=== PATIENT | male | born 1965 | race Caucasian/White ===

== ENCOUNTER 2017-09-24 18:23 | Day surgery (SDC) | payer BC, OTHER ==
[2017-09-24] MEDS ORDERED: Ondansetron 4 MG/2 ML SDV IVPUSH ONE ×3 (19:45→22:10)
[2017-09-24] MEDS ORDERED: Morphine 4 MG/ML Syringe IVPUSH ONE (19:45)
[2017-09-24] MEDS ORDERED: Sodium Chloride 0.9% 1,000 ML IV SCH ×2 (19:45→21:15)
--- NOTE | 2017-09-24 19:51 | EDM.PDOC ---
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, pain getting worse, localized h/o kidney stone once 1y ago, that was a different pain (in his back) no f/c/d nausea, no V no f/c/d no prior abd surgery inc'd pain with movement, dec'd with rest (lying supine), no change with BM, dec 'd with cottage cheese at 1:30 PM last labs: CBC neg, CMP neg with BUN/creat 16/1.0 except glu 175 2y ago, BNP 14 2y ago went to clinic who sent hime here has taken no meds home meds: Janumet, glimepride, levothyroxine, ASA 81 mg prior imaging: abd/pelvic CT 2y ago with 7 mm stone at distal R ureter, no stones in pelvis, DJD spine 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 Right Lower Abdominal Pain Score (Numeric/FACES): 6 - Related Data Allergies Allergy/AdvReac Type Severity Reaction Status Date / Time No Known Allergies Allergy Verified 09/24/17 18:58 Home Meds: Home Meds Aspirin [Dariana Chewable Aspirin] 81 mg PO DAILY 07/11/15 [History] Glimepiride [Glimepiride] 4 mg PO DAILY 07/11/15 [History] Levothyroxine 175 mcg PO DAILY 07/11/15 [History] sitaGLIPtin Phos/Metformin HCl [Janumet 50-1,000 MG] 1 tab PO DAILY 07/11/15 [ History] Past Medical History Cardiovascular History: Reports: Hypertension Gastrointestinal History: Reports: Other (See Below) Other Gastrointestinal History: occasional blood with stool Genitourinary History: Reports: Renal Calculus Endocrine/Metabolic History: Reports: Diabetes, Type II, Hypothyroidism - Infectious Disease History Infectious Disease History: Reports: Chicken Pox - Past Surgical History Musculoskeletal Surgical History: Reports: Arthroscopic Knee, Other (See Below) Other Musculoskeletal Surgeries/Procedures:: tonsillectomy at age 6, SURGERY TO WRIST Social & Family History - Tobacco Use Smoking Status *Q: Former Smoker Used Tobacco, but Quit: Yes Month Tobacco Last Used: 25yrs ago Second Hand Smoke Exposure: No - Caffeine Use Caffeine Use: Reports: Coffee, Soda, Tea - Recreational Drug Use Recreational Drug Use: No ED ROS GENERAL - Review of Systems Review Of Systems: See Below Constitutional: Reports: No Symptoms. Denies: Fever, Chills, Malaise, Weakness , Fatigue, Diaphoresis, Decreased Appetite HEENT: Reports: No Symptoms Respiratory: Reports: No Symptoms Cardiovascular: Reports: No Symptoms Endocrine: Reports: No Symptoms GI/Abdominal: Reports: Abdominal Pain, Nausea. Denies: Constipation, Diarrhea, Vomiting : Reports: No Symptoms Musculoskeletal: Reports: No Symptoms Skin: Reports: No Symptoms Neurological: Reports: No Symptoms Psychiatric: Reports: No Symptoms Hematologic/Lymphatic: Reports: No Symptoms Immunologic: Reports: No Symptoms ED EXAM, GI/ABD - Physical Exam Exam: See Below Exam Limited By: No Limitations General Appearance: Alert, WD/WN, Mild Distress, Other (nontoxic, lying fairly still supine on exam table) Ears: Normal External Exam, Hearing Grossly Normal Nose: Normal Inspection, Normal Mucosa, No Blood Throat/Mouth: Normal Inspection, Normal Lips, Normal Teeth, Normal Gums, Normal Oropharynx, Normal Voice, No Airway Compromise Head: Atraumatic, Normocephalic Neck: Normal Inspection, Supple, Non-Tender Respiratory/Chest: No Respiratory Distress, Lungs Clear, Normal Breath Sounds, No Accessory Muscle Use, Chest Non-Tender Cardiovascular: Regular Rate, Rhythm, No Edema, No Gallop, No JVD, No Murmur, No Rub GI/Abdominal Exam: Other (good BS x 4, obese, 1-2+ tender RLQ with guard and rebound only in RLQ, NT elsewhere, no HSM, no mass, no CVAT b/l) Back Exam: Normal Inspection, Full Range of Motion, NT Extremities: Normal Inspection, Normal Range of Motion, Non-Tender, Other (1+ edema b/l) Neurological: Alert, Oriented, CN II-XII Intact, Normal Cognition, No Motor/ Sensory Deficits Psychiatric: Normal Affect, Normal Mood Skin Exam: Warm, Dry, Intact, Normal Color, No Rash Lymphatic: No Adenopathy Course - Vital Signs Last Recorded V/S: Last Vital Signs Temp 37.1 C 09/24/17 19:05 Pulse 99 09/24/17 21:35 Resp 16 09/24/17 21:35 BP 162/87 H 09/24/17 21:35 Pulse Ox 97 09/24/17 19:05 - Orders/Labs/Meds Orders: Active Orders 24 hr Category Date Time Status Abdomen Pelvis w Cont [CT] Stat Exams 09/24/17 19:44 Taken Sodium Chloride 0.9% [Normal Saline] 1,000 ml Med 09/24/17 19:45 Active IV ASDIRECTED Sodium Chloride 0.9% [Normal Saline] 1,000 ml Med 09/24/17 21:15 Active IV ASDIRECTED Medication Orders Sodium Chloride (Normal Saline) 1,000 mls @ 999 mls/hr IV ASDIRECTED [facility] Last Admin: 09/24/17 20:06 Dose: 999 mls/hr Sodium Chloride (Normal Saline) 1,000 mls @ 999 mls/hr IV ASDIRECTED [facility]EKE Last Admin: 09/24/17 21:29 Dose: 999 mls/hr Labs: Laboratory Tests 09/24/17 09/24/17 09/24/17 Range/Units 19:45 20:25 20:25 WBC 14.4 H (4.5-12.0) X10-3/uL RBC 4.99 (4.30-5.75) x10(6)uL Hgb 14.5 (11.5-15.5) g/dL Hct 42.3 (30.0-51.3) % MCV 84.7 (80-96) fL MCH 29.1 (27.7-33.6) pg MCHC 34.3 (32.2-35.4) g/dL RDW 13.1 (11.5-15.5) % Plt Count 223 (125-369) X10(3)uL MPV 8.7 (7.4-10.4) fL Add Manual Diff Yes Neutrophils % (Manual) 77 (46-82) % Band Neutrophils % 7 H (0-6) % Lymphocytes % (Manual) 11 L (13-37) % Monocytes % (Manual) 5 (4-12) % Sodium 135 (135-145) mmol/L Potassium 3.8 (3.5-5.3) mmol/L Chloride 103 (100-110) mmol/L Carbon Dioxide 25 (23-29) mmol/L BUN 14 (5-20) mg/dL Creatinine 0.9 (0.6-1.3) mg/dL Est Cr Clr Drug Dosing 107.78 mL/min Estimated GFR (MDRD) > 60 (>60) BUN/Creatinine Ratio 15.6 (9-20) Glucose 140 H (80-116) mg/dL Calcium 8.3 L (8.6-10.2) mg/dL Total Bilirubin 0.7 (0.1-1.3) mg/dL AST 23 (5-27) IU/L ALT 31 H (14-26) IU/L Alkaline Phosphatase 56 (56-112) IU/L C-Reactive Protein 1.2 H (0.0-1.0) mg/dL Total Protein 7.1 (6.0-8.0) g/dL Albumin 3.8 (3.5-5.2) g/dL Globulin 3.3 g/dL Albumin/Globulin Ratio 1.2 Amylase 43 (28-100) U/L Urine Color Yellow (YELLOW) Urine Appearance Clear (CLEAR) Urine pH 6.0 (5.0-6.5) Ur Specific [place] 1.015 (1.010-1.025) Urine Protein Negative (NEGATIVE) mg/dL Urine Glucose (UA) Normal (NEGATIVE) mg/dL Urine Ketones Negative (NEGATIVE) mg/dL Urine Occult Blood Negative (NEGATIVE) Urine Nitrite Negative (NEGATIVE) Urine Bilirubin Negative (NEGATIVE) Urine Urobilinogen Normal (NEGATIVE) mg/dL Ur Leukocyte Esterase Negative (NEGATIVE) Urine RBC 0-5 (0) Urine WBC 0-5 (0) Ur Squamous Epith Cells Rare (NS,R,O) Urine Bacteria Few H (NS) Meds: Medications Generic Name Dose Route Start Last Admin Trade Name Freq PRN Reason Stop Dose Admin Sodium Chloride 1,000 mls @ 999 mls/hr 09/24/17 19:45 09/24/17 20:06 Normal Saline IV 999 mls/hr ASDIRECTED ZEKE Administration Sodium Chloride 1,000 mls @ 999 mls/hr 09/24/17 21:15 09/24/17 21:29 Normal Saline IV 999 mls/hr ASDIRECTED [facility]EKE Administration Discontinued Medications Generic Name Dose Route Start Last Admin Trade Name Freq PRN Reason Stop Dose Admin Cefoxitin Sodium 2 gm/ Sodium 100 mls @ 200 mls/hr 09/24/17 21:07 Chloride IV 09/24/17 21:36 ONETIME ONE Iopamidol 150 ml 09/24/17 19:55 09/24/17 20:17 Isovue-370 (76%) IV 09/24/17 19:56 150 ml ONETIME ONE Administration Morphine Sulfate 4 mg 09/24/17 19:45 09/24/17 20:05 Morphine IVPUSH 09/24/17 19:46 4 mg ONETIME ONE Administration Morphine Sulfate 6 mg 09/24/17 21:08 09/24/17 21:28 Morphine IVPUSH 09/24/17 21:09 6 mg ONETIME ONE Administration Ondansetron HCl 4 mg 09/24/17 19:45 09/24/17 20:05 Zofran IVPUSH 09/24/17 19:46 4 mg ONETIME ONE Administration Ondansetron HCl 4 mg 09/24/17 21:42 Zofran IVPUSH 09/24/17 21:43 ONETIME ONE - Re-Assessments/Exams Free Text/Narrative Re-Assessment/Exam: 09/24/17 21:06 CT, PE, labs (inc'd WBC, L shift, inc'd CRP) all c/w acute appendicitis called placed to Dr Sewell still pain after 4 mg MS IV, will given an additional 6 mg IV will 2nd liter NS Free Text/Narrative Re-Assessment/Exam: 09/24/17 21:46 Dr Sewell here and has meet with pt, OR team on their way in Departure - Departure Time of Disposition: 21:46 Disposition: Refer to Observation Condition: Fair Clinical Impression: Acute appendicitis, Leukocytosis, Elevated C-reactive protein (CRP), Splenomegaly, Hepatic steatosis, Elevated blood pressure reading - Discharge Information Referrals: Link Brennan MD [Primary Care Provider] - Forms: ED Department Discharge - My Orders Last 24 Hours: My Active Orders 09/24/17 19:44 Abdomen Pelvis w Cont [CT] Stat 09/24/17 19:45 Sodium Chloride 0.9% [Normal Saline] 1,000 ml IV ASDIRECTED 09/24/17 21:15 Sodium Chloride 0.9% [Normal Saline] 1,000 ml IV ASDIRECTED - Assessment/Plan Last 24 Hours: My Active Orders 09/24/17 19:44 Abdomen Pelvis w Cont [CT] Stat 09/24/17 19:45 Sodium Chloride 0.9% [Normal Saline] 1,000 ml IV ASDIRECTED 09/24/17 21:15 Sodium Chloride 0.9% [Normal Saline] 1,000 ml IV ASDIRECTED
[2017-09-24] MEDS ORDERED: Iopamidol 755 MG/ML 150 ML Bottle IV ONE (19:55)
[2017-09-24] MEDS ORDERED: cefOXitin 2 GM in Sodium Chloride 0.9% 100 ML IV ONE (21:07)
[2017-09-24] MEDS ORDERED: Morphine 10 MG/ML Syringe IVPUSH ONE (21:08)
[2017-09-24] MEDS ORDERED: cefOXitin 1 GM Vial ONE (21:44)
[2017-09-24] MEDS ORDERED: Lactated Ringers 1,000 ML IV SCH (21:45)
[2017-09-24] MEDS ORDERED: cefOXitin 100 ML ONE (21:46)
--- NOTE | 2017-09-24 21:54 | PCM.HP ---
H&P History of Present Illness - General Date of Service: 09/24/17 Admit Problem/Dx: Admission Diagnosis/Problem Admission Diagnosis/Problem Acute appendicitis Source of Information: Patient - History of Present Illness Initial Comments - Free Text/Narative: 51 yo wm who developed abd pain ealier today. Pain was in the rlq. It has gotten progressively worse as the day has progressed. Some nausea,no vomiting. subsequent w/u demonstrated acute appendicitis on CT scan also has a leukocytosis. No allergies, no previous abd surgeries. Last meal was at 11 am, sip of soda at 1600. = Right Lower Abdominal Pain Score (Numeric/FACES): 6 - Related Data Allergies/Adverse Reactions: Allergies Allergy/AdvReac Type Severity Reaction Status Date / Time No Known Allergies Allergy Verified 09/24/17 18:58 Home Medications: Home Meds Aspirin [Dariana Chewable Aspirin] 81 mg PO DAILY 07/11/15 [History] Glimepiride [Glimepiride] 4 mg PO DAILY 07/11/15 [History] Levothyroxine 175 mcg PO DAILY 07/11/15 [History] sitaGLIPtin Phos/Metformin HCl [Janumet 50-1,000 MG] 1 tab PO DAILY 07/11/15 [ History] Past Medical History Cardiovascular History: Reports: Hypertension Gastrointestinal History: Reports: Other (See Below) Other Gastrointestinal History: occasional blood with stool Genitourinary History: Reports: Renal Calculus Endocrine/Metabolic History: Reports: Diabetes, Type II, Hypothyroidism - Infectious Disease History Infectious Disease History: Reports: Chicken Pox - Past Surgical History Musculoskeletal Surgical History: Reports: Arthroscopic Knee, Other (See Below) Other Musculoskeletal Surgeries/Procedures:: tonsillectomy at age 6, SURGERY TO WRIST Social & Family History - Family History Family Medical History: Noncontributory - Tobacco Use Smoking Status *Q: Former Smoker Used Tobacco, but Quit: Yes Month Tobacco Last Used: 25yrs ago Second Hand Smoke Exposure: No - Caffeine Use Caffeine Use: Reports: Coffee, Soda, Tea - Recreational Drug Use Recreational Drug Use: No H&P Review of Systems - Review of Systems: Review Of Systems: See Below General: Reports: Chills. Denies: Fever Pulmonary: Reports: No Symptoms Cardiovascular: Reports: No Symptoms Gastrointestinal: Reports: Abdominal Pain, Nausea Genitourinary: Reports: No Symptoms Musculoskeletal: Reports: No Symptoms Skin: Reports: No Symptoms Neurological: Reports: No Symptoms Exam - Exam Exam: See Below - Vital Signs Vital Signs: Last Vital Signs Temp 37.1 C 09/24/17 19:05 Pulse 99 09/24/17 21:35 Resp 16 09/24/17 21:35 BP 162/87 H 09/24/17 21:35 Pulse Ox 97 09/24/17 19:05 Weight: 161.025 kg - Exam General: Alert, Oriented, Cooperative HEENT: PERRLA, Conjunctiva Clear, EOMI, Posterior Pharynx Clear Neck: Supple Lungs: Clear to Auscultation, Normal Respiratory Effort Cardiovascular: Regular Rate, Regular Rhythm GI/Abdominal Exam: Normal Bowel Sounds, Soft, Rebound, Tender (rlq ) Extremities: Normal Inspection Skin: Warm, Dry, Intact - Patient Data Lab Results Last 24 hrs: Laboratory Results - last 24 hr 09/24/17 09/24/17 09/24/17 Range/Units 19:45 20:25 20:25 WBC 14.4 H (4.5-12.0) X10-3/uL RBC 4.99 (4.30-5.75) x10(6)uL Hgb 14.5 (11.5-15.5) g/dL Hct 42.3 (30.0-51.3) % MCV 84.7 (80-96) fL MCH 29.1 (27.7-33.6) pg MCHC 34.3 (32.2-35.4) g/dL RDW 13.1 (11.5-15.5) % Plt Count 223 (125-369) X10(3)uL MPV 8.7 (7.4-10.4) fL Add Manual Diff Yes Neutrophils % (Manual) 77 (46-82) % Band Neutrophils % 7 H (0-6) % Lymphocytes % (Manual) 11 L (13-37) % Monocytes % (Manual) 5 (4-12) % Sodium 135 (135-145) mmol/L Potassium 3.8 (3.5-5.3) mmol/L Chloride 103 (100-110) mmol/L Carbon Dioxide 25 (23-29) mmol/L BUN 14 (5-20) mg/dL Creatinine 0.9 (0.6-1.3) mg/dL Est Cr Clr Drug Dosing 107.78 mL/min Estimated GFR (MDRD) > 60 (>60) BUN/Creatinine Ratio 15.6 (9-20) Glucose 140 H (80-116) mg/dL Calcium 8.3 L (8.6-10.2) mg/dL Total Bilirubin 0.7 (0.1-1.3) mg/dL AST 23 (5-27) IU/L ALT 31 H (14-26) IU/L Alkaline Phosphatase 56 (56-112) IU/L C-Reactive Protein 1.2 H (0.0-1.0) mg/dL Total Protein 7.1 (6.0-8.0) g/dL Albumin 3.8 (3.5-5.2) g/dL Globulin 3.3 g/dL Albumin/Globulin Ratio 1.2 Amylase 43 (28-100) U/L Urine Color Yellow (YELLOW) Urine Appearance Clear (CLEAR) Urine pH 6.0 (5.0-6.5) Ur Specific [place] 1.015 (1.010-1.025) Urine Protein Negative (NEGATIVE) mg/dL Urine Glucose (UA) Normal (NEGATIVE) mg/dL Urine Ketones Negative (NEGATIVE) mg/dL Urine Occult Blood Negative (NEGATIVE) Urine Nitrite Negative (NEGATIVE) Urine Bilirubin Negative (NEGATIVE) Urine Urobilinogen Normal (NEGATIVE) mg/dL Ur Leukocyte Esterase Negative (NEGATIVE) Urine RBC 0-5 (0) Urine WBC 0-5 (0) Ur Squamous Epith Cells Rare (NS,R,O) Urine Bacteria Few H (NS) Result Diagrams: 09/24/17 20:25 09/24/17 20:25 *Q Meaningful Use (ADM) - VTE *Q VTE Criteria *Q: - Stroke *Q Stroke Criteria *Q: - AMI *Q AMI Criteria *Q: - Problem List (1) Acute appendicitis SNOMED Code(s): 61962162 ICD Code: K35.80 - UNSPECIFIED ACUTE APPENDICITIS Status: Acute Current Visit: Yes Problem List Initiated/Reviewed/Updated: Yes Orders Last 24hrs: Active Orders 24 hr Category Date Time Status Patient Status [ADT] Routine ADT 09/24/17 21:45 Active Verify Patient Consent Obtain [RC] ASDIRECTED Care 09/24/17 21:45 Active Nothing Per Oral Diet [DIET] Diet 09/24/17 Breakfast Ordered Abdomen Pelvis w Cont [CT] Stat Exams 09/24/17 19:44 Taken Lactated Ringers [Ringers, Lactated] 1,000 ml Med 09/24/17 21:45 Ordered IV ASDIRECTED Sodium Chloride 0.9% [Normal Saline] 1,000 ml Med 09/24/17 19:45 Active IV ASDIRECTED Sodium Chloride 0.9% [Normal Saline] 1,000 ml Med 09/24/17 21:15 Active IV ASDIRECTED SCD [Sequential Compression Device] [OM.PC] Routine Oth 09/24/17 21:47 Ordered Resuscitation Status Routine Resus Stat 09/24/17 21:45 Ordered Medication Orders Sodium Chloride (Normal Saline) 1,000 mls @ 999 mls/hr IV ASDIRECTED [facility] Last Admin: 09/24/17 20:06 Dose: 999 mls/hr Sodium Chloride (Normal Saline) 1,000 mls @ 999 mls/hr IV ASDIRECTED [facility] Last Admin: 09/24/17 21:29 Dose: 999 mls/hr Lactated Ringer's (Ringers, Lactated) 1,000 mls @ 125 mls/hr IV ASDIRECTED [facility] Assessment/Plan Comment:: lap appendectomy. the procedure and risks were explained to the pt to include bleeding, infection and injury to bowel bladder and blood vessel. expressed understanding and asked us to proceed.
[2017-09-24] MEDS ORDERED: Lactated Ringers 2,000 ML IV ONE (22:10)
[2017-09-24] MEDS ORDERED: Ketorolac 30 MG/ML SDV IVPUSH ONE (22:10)
[2017-09-24] MEDS ORDERED: Midazolam 1 MG/ML 2 ML SDV IV ONE (22:10)
[2017-09-24] MEDS ORDERED: Dexamethasone 4 MG/ML SDV IVPUSH ONE (22:10)
[2017-09-24] MEDS ORDERED: Neostigmine Methylsulfate 10 MG/10 ML MDV IVPUSH ONE (22:10)
[2017-09-24] MEDS ORDERED: Propofol 200 MG/20 ML SDV IV ONE (22:10)
[2017-09-24] MEDS ORDERED: Lidocaine 2% 100 MG/5 ML Syringe IVPUSH ONE (22:10)
[2017-09-24] MEDS ORDERED: fentaNYL 100 MCG/2 ML SDV IV ONE (22:10)
[2017-09-24] MEDS ORDERED: Succinylcholine 200 MG/10 ML MDV IV ONE (22:10)
[2017-09-24] MEDS ORDERED: Rocuronium 100 MG/10 ML MDV IV ONE (22:10)
[2017-09-24] MEDS ORDERED: Bupivacaine 0.5% 30 ML SDV INJECT ONE (23:11)
[2017-09-24] MEDS ORDERED: Lidocaine 1% with EPINEPHrine 1:100,000 20 ML MDV INJECT ONE (23:11)
[2017-09-24] MEDS ORDERED: cefOXitin 2 GM in Sodium Chloride 0.9% 50 ML IV SCH (23:45)
[2017-09-24] MEDS ORDERED: Ondansetron 4 MG/2 ML SDV IVPUSH PRN (23:49)
[2017-09-24] MEDS ORDERED: Morphine 4 MG/ML Syringe IVPUSH PRN (23:49)
--- NOTE | 2017-09-24 23:56 | PCM.OPNOTE ---
- General Post-Op/Procedure Note Date of Surgery/Procedure: 09/24/17 Operative Procedure(s): lap appendectomy Findings: suppurative appendix Pre Op Diagnosis: acute appendicitis Post-Op Diagnosis: Same Anesthesia Technique: General ET Tube, Local (10 ml 1% LIDO WITH EPI/0.5% BUVIPICAINE) Primary Surgeon: Kameron Sewell Anesthesia Provider: Chai Nash Pathology: appendix EBL in mLs: 10 Complications: None Condition: Good Free Text/Narrative:: see dictation
[2017-09-25] MEDS ORDERED: cefOXitin 0 ML ONE (04:07)
[2017-09-25] MEDS ORDERED: cefOXitin 2 GM in Sodium Chloride 0.9% 50 ML IV SCH (04:30)
[2017-09-25] MEDS: Insulin Aspart 100 Units/ML 3 ML Pen SUBCUT SCH ×2 (08:06→12:00)
--- NOTE | 2017-09-25 08:55 | OR ---
DATE OF PROCEDURE: 09/24/2017 PROCEDURE PERFORMED: Laparoscopic appendectomy. PREOPERATIVE DIAGNOSIS: Acute appendicitis. POSTOPERATIVE DIAGNOSIS: Acute appendicitis. INDICATIONS FOR PROCEDURE: This is a 51-year-old white male, who presented to the emergency department with a history of right lower quadrant abdominal pain. Subsequent workup revealed findings consistent with acute appendicitis. This included right lower quadrant abdominal pain with rebound, leukocytosis, as well as a positive CT scan finding. He was offered and accepted laparoscopic appendectomy. INTRAOPERATIVE FINDINGS: As follows: 10 mL of 1:1 mixture of 1% lidocaine with epinephrine and 0.5% bupivacaine were used to infiltrate the port sites. The suppurative appendix was removed. DESCRIPTION OF OPERATION: After an excellent general anesthetic was administered, the patient was prepped and draped in the usual sterile manner. Local was used to infiltrate just below the umbilicus, and using a #15 scalpel blade, a skin incision was made. Blunt dissection was carried out, exposing the midline fascia. Two stay sutures of 0 Vicryl were placed on either side of the midline fascia, which was then elevated and incised, and the abdominal cavity was entered. After digital palpation to ensure that there were no adhesions, two 5-mm ports were placed, one in the midline below the periumbilical port and one in the right lower quadrant. The inflamed appendix was identified. This was grasped. Careful blunt dissection was carried out, and the mesoappendix was divided with a 3.5 load on our Endo JESUS. There was some bleeding noted along the edge, which was controlled with clip placement. Further dissection was carried out, and the appendiceal artery was clipped, two proximal and one distal prior to transection. Then, an additional 3.5-mm load was used to transect the base of the appendix at the cecum. The area was irrigated, and after ensuring excellent hemostasis, the ports were removed. Pneumoperitoneum was released. The periumbilical port was closed with a [id number] 0 Vicryl, and then two stay sutures were tied to each other. Blanco were used to close the skin. Bandages were applied. Needle, sponge, and instrument counts were reported as correct. The patient was taken to recovery room in good condition. /[id number] /MODL
[2017-09-25] MEDS: cefOXitin 2 GM in Sodium Chloride 0.9% 50 ML IV SCH ×2 (10:42→16:54)
--- NOTE | 2017-09-25 11:39 | PCM.SURGPN ---
- General Info Date of Service: 09/25/17 POD#: 1 Functional Status: Reports: Pain Controlled - Review of Systems Pulmonary: Reports: No Symptoms Cardiovascular: Reports: No Symptoms Gastrointestinal: Reports: Abdominal Pain - Patient Data Vitals - Most Recent: Last Vital Signs Temp 36.4 C 09/25/17 07:42 Pulse 92 09/25/17 07:42 Resp 16 09/25/17 07:42 BP 109/62 09/25/17 07:42 Pulse Ox 94 L 09/25/17 07:42 Weight - Most Recent: 158.077 kg I&O - Last 24 Hours: Intake & Output 09/24/17 09/25/17 09/25/17 22:59 06:59 14:59 Intake Total 669 Output Total 325 Balance 344 Lab Results Last 24 Hrs: Laboratory Results - last 24 hr 09/24/17 09/24/17 09/24/17 Range/Units 19:45 20:25 20:25 WBC 14.4 H (4.5-12.0) X10-3/uL RBC 4.99 (4.30-5.75) x10(6)uL Hgb 14.5 (11.5-15.5) g/dL Hct 42.3 (30.0-51.3) % MCV 84.7 (80-96) fL MCH 29.1 (27.7-33.6) pg MCHC 34.3 (32.2-35.4) g/dL RDW 13.1 (11.5-15.5) % Plt Count 223 (125-369) X10(3)uL MPV 8.7 (7.4-10.4) fL Neut % (Auto) (46-82) % Lymph % (Auto) (13-37) % [place] % (Auto) (4-12) % Eos % (Auto) (1.0-5.0) % Baso % (Auto) (0-2) % Neut # (Auto) (1.6-8.3) # Lymph # (Auto) (0.6-5.0) # [place] # (Auto) (0.0-1.3) # Eos # (Auto) (0.0-0.8) # Baso # (Auto) (0.0-0.2) # Add Manual Diff Yes Neutrophils % (Manual) 77 (46-82) % Band Neutrophils % 7 H (0-6) % Lymphocytes % (Manual) 11 L (13-37) % Monocytes % (Manual) 5 (4-12) % Sodium 135 (135-145) mmol/L Potassium 3.8 (3.5-5.3) mmol/L Chloride 103 (100-110) mmol/L Carbon Dioxide 25 (23-29) mmol/L BUN 14 (5-20) mg/dL Creatinine 0.9 (0.6-1.3) mg/dL Est Cr Clr Drug Dosing 107.78 mL/min Estimated GFR (MDRD) > 60 (>60) BUN/Creatinine Ratio 15.6 (9-20) Glucose 140 H (80-116) mg/dL POC Glucose (80-116) mg/dL Calcium 8.3 L (8.6-10.2) mg/dL Total Bilirubin 0.7 (0.1-1.3) mg/dL AST 23 (5-27) IU/L ALT 31 H (14-26) IU/L Alkaline Phosphatase 56 (56-112) IU/L C-Reactive Protein 1.2 H (0.0-1.0) mg/dL Total Protein 7.1 (6.0-8.0) g/dL Albumin 3.8 (3.5-5.2) g/dL Globulin 3.3 g/dL Albumin/Globulin Ratio 1.2 Amylase 43 (28-100) U/L Urine Color Yellow (YELLOW) Urine Appearance Clear (CLEAR) Urine pH 6.0 (5.0-6.5) Ur Specific [place] 1.015 (1.010-1.025) Urine Protein Negative (NEGATIVE) mg/dL Urine Glucose (UA) Normal (NEGATIVE) mg/dL Urine Ketones Negative (NEGATIVE) mg/dL Urine Occult Blood Negative (NEGATIVE) Urine Nitrite Negative (NEGATIVE) Urine Bilirubin Negative (NEGATIVE) Urine Urobilinogen Normal (NEGATIVE) mg/dL Ur Leukocyte Esterase Negative (NEGATIVE) Urine RBC 0-5 (0) Urine WBC 0-5 (0) Ur Squamous Epith Cells Rare (NS,R,O) Urine Bacteria Few H (NS) 09/25/17 09/25/17 09/25/17 Range/Units 05:55 06:00 11:17 WBC 17.0 H (4.5-12.0) X10-3/uL RBC 4.85 (4.30-5.75) x10(6)uL Hgb 14.3 (11.5-15.5) g/dL Hct 41.4 (30.0-51.3) % MCV 85.3 (80-96) fL MCH 29.5 (27.7-33.6) pg MCHC 34.6 (32.2-35.4) g/dL RDW 13.4 (11.5-15.5) % Plt Count 228 (125-369) X10(3)uL MPV 9.1 (7.4-10.4) fL Neut % (Auto) 85.8 H (46-82) % Lymph % (Auto) 6.4 L (13-37) % [place] % (Auto) 7.0 (4-12) % Eos % (Auto) 0 L (1.0-5.0) % Baso % (Auto) 1 (0-2) % Neut # (Auto) 14.6 H (1.6-8.3) # Lymph # (Auto) 1.1 (0.6-5.0) # [place] # (Auto) 1.2 (0.0-1.3) # Eos # (Auto) 0.0 (0.0-0.8) # Baso # (Auto) 0.1 (0.0-0.2) # Add Manual Diff Neutrophils % (Manual) (46-82) % Band Neutrophils % (0-6) % Lymphocytes % (Manual) (13-37) % Monocytes % (Manual) (4-12) % Sodium (135-145) mmol/L Potassium (3.5-5.3) mmol/L Chloride (100-110) mmol/L Carbon Dioxide (23-29) mmol/L BUN (5-20) mg/dL Creatinine (0.6-1.3) mg/dL Est Cr Clr Drug Dosing mL/min Estimated GFR (MDRD) (>60) BUN/Creatinine Ratio (9-20) Glucose (80-116) mg/dL POC Glucose 186 H 158 H (80-116) mg/dL Calcium (8.6-10.2) mg/dL Total Bilirubin (0.1-1.3) mg/dL AST (5-27) IU/L ALT (14-26) IU/L Alkaline Phosphatase (56-112) IU/L C-Reactive Protein (0.0-1.0) mg/dL Total Protein (6.0-8.0) g/dL Albumin (3.5-5.2) g/dL Globulin g/dL Albumin/Globulin Ratio Amylase (28-100) U/L Urine Color (YELLOW) Urine Appearance (CLEAR) Urine pH (5.0-6.5) Ur Specific [place] (1.010-1.025) Urine Protein (NEGATIVE) mg/dL Urine Glucose (UA) (NEGATIVE) mg/dL Urine Ketones (NEGATIVE) mg/dL Urine Occult Blood (NEGATIVE) Urine Nitrite (NEGATIVE) Urine Bilirubin (NEGATIVE) Urine Urobilinogen (NEGATIVE) mg/dL Ur Leukocyte Esterase (NEGATIVE) Urine RBC (0) Urine WBC (0) Ur Squamous Epith Cells (NS,R,O) Urine Bacteria (NS) Med Orders - Current: Current Medications Sodium Chloride (Normal Saline) 1,000 mls @ 999 mls/hr IV ASDIRECTED [facility] Last Admin: 09/24/17 20:06 Dose: 999 mls/hr Sodium Chloride (Normal Saline) 1,000 mls @ 999 mls/hr IV ASDIRECTED [facility] Last Admin: 09/24/17 21:29 Dose: 999 mls/hr Lactated Ringer's (Ringers, Lactated) 1,000 mls @ 125 mls/hr IV ASDIRECTED [facility] Last Admin: 09/25/17 07:15 Dose: 125 mls/hr Cefoxitin Sodium 2 gm/ Sodium (Chloride) 50 mls @ 100 mls/hr IV Q6H [facility] Last Admin: 09/25/17 10:42 Dose: 100 mls/hr Insulin Aspart (Novolog) 0 unit SUBCUT TIDMEALS [facility] PRN Reason: Protocol Last Admin: 09/25/17 08:06 Dose: 2 units Levothyroxine Sodium (Levothyroxine) 175 mcg PO DAILY@0600 [facility] Last Admin: 09/25/17 07:31 Dose: 175 mcg Morphine Sulfate (Morphine) 4 mg IVPUSH Q2H PRN PRN Reason: Pain (severe 7-10) Ondansetron HCl (Zofran) 4 mg IVPUSH Q6H PRN PRN Reason: Nausea/Vomiting Discontinued Medications Bupivacaine HCl (Marcaine 0.5%) 5 ml INJECT .STK-MED ONE Stop: 09/24/17 23:12 Last Admin: 09/24/17 23:11 Dose: 5 ml Cefoxitin Sodium (Mefoxin) Confirm Administered Dose 2 gm .ROUTE .STK-MED ONE Stop: 09/24/17 21:45 Last Admin: 09/24/17 21:54 Dose: Not Given Cefoxitin Sodium 2 gm/ Sodium (Chloride) 100 mls @ 200 mls/hr IV ONETIME ONE Stop: 09/24/17 21:36 Last Admin: 09/24/17 21:54 Dose: Not Given Cefoxitin Sodium (Mefoxin In Dextrose,Iso-Osm 1 Gm/50 Ml) Confirm Administered Dose 100 mls @ as directed .ROUTE .STK-MED ONE Stop: 09/24/17 21:47 Last Admin: 09/24/17 21:54 Dose: 2 gm Cefoxitin Sodium 2 gm/ Sodium (Chloride) 50 mls @ 100 mls/hr IV Q6H [facility] Cefoxitin Sodium (Mefoxin In Dextrose,Iso-Osm 1 Gm/50 Ml) Confirm Administered Dose 100 mls @ as directed .ROUTE .STK-MED ONE Stop: 09/25/17 04:08 Last Admin: 09/25/17 06:25 Dose: Not Given Cefoxitin Sodium 2 gm/ Sodium (Chloride) 50 mls @ 100 mls/hr IV Q6H [facility] Last Admin: 09/25/17 04:44 Dose: 100 mls/hr Iopamidol (Isovue-370 (76%)) 150 ml IV ONETIME ONE Stop: 09/24/17 19:56 Last Admin: 09/24/17 20:17 Dose: 150 ml Lidocaine/Epinephrine (Xylocaine 1% With Epinephrine 1:100,000) 5 ml INJECT .STK-MED ONE Stop: 09/24/17 23:12 Last Admin: 09/24/17 23:11 Dose: 5 ml Morphine Sulfate (Morphine) 4 mg IVPUSH ONETIME ONE Stop: 09/24/17 19:46 Last Admin: 09/24/17 20:05 Dose: 4 mg Morphine Sulfate (Morphine) 6 mg IVPUSH ONETIME ONE Stop: 09/24/17 21:09 Last Admin: 09/24/17 21:28 Dose: 6 mg Ondansetron HCl (Zofran) 4 mg IVPUSH ONETIME ONE Stop: 09/24/17 19:46 Last Admin: 09/24/17 20:05 Dose: 4 mg Ondansetron HCl (Zofran) 4 mg IVPUSH ONETIME ONE Stop: 09/24/17 21:43 Last Admin: 09/24/17 21:53 Dose: 4 mg - Exam Wound/Incisions: Healing Well Lungs: Clear to Auscultation, Normal Respiratory Effort Cardiovascular: Regular Rate, Regular Rhythm GI/Abdominal Exam: Normal Bowel Sounds, Soft, Non-Tender - Problem List & Annotations (1) Acute appendicitis SNOMED Code(s): 40268895 Code(s): K35.80 - UNSPECIFIED ACUTE APPENDICITIS Status: Acute Current Visit: Yes Qualifiers: Acute appendicitis type: with localized peritonitis Qualified Code(s): K35.3 - Acute appendicitis with localized peritonitis - Problem List Review Problem List Initiated/Reviewed/Updated: Yes - My Orders Last 24 Hours: Active Orders 24 hr Category Date Time Status Patient Status [ADT] Routine ADT 09/24/17 21:45 Active Ambulate [RC] .TID Care 09/24/17 23:49 Active Blood Glucose Check, Bedside [RC] QIDACANDBED Care 09/24/17 23:49 Active Diabetes Education [RC] Click to Edit Care 09/24/17 23:51 Active Notify Provider Vital Signs [RC] PRN Care 09/24/17 23:50 Active Notify Provider [RC] PRN Care 09/24/17 23:52 Active Oxygen Therapy [RC] PRN Care 09/24/17 23:49 Active RT Incentive Spirometry [RC] Q2HWA Care 09/24/17 23:49 Active Vital Signs [RC] Q4HR Care 09/24/17 23:49 Active Abdomen Pelvis w Cont [CT] Stat Exams 09/24/17 19:44 Taken Insulin Aspart [NovoLOG] Med 09/25/17 08:00 Active See Protocol SUBCUT TIDMEALS Lactated Ringers [Ringers, Lactated] 1,000 ml Med 09/24/17 21:45 Active IV ASDIRECTED Levothyroxine Med 09/25/17 06:00 Active 175 mcg PO DAILY@0600 Morphine Med 09/24/17 23:49 Active 4 mg IVPUSH Q2H PRN Ondansetron [Zofran] Med 09/24/17 23:49 Active 4 mg IVPUSH Q6H PRN Sodium Chloride 0.9% [Normal Saline] 1,000 ml Med 09/24/17 19:45 Active IV ASDIRECTED Sodium Chloride 0.9% [Normal Saline] 1,000 ml Med 09/24/17 21:15 Active IV ASDIRECTED cefOXitin [Mefoxin] 2 gm Med 09/25/17 10:30 Active Sodium Chloride 0.9% [Normal Saline] 50 ml IV Q6H Glucose Management Sub Q Reflex [OM.PC] Click to Edit Oth 09/24/17 23:49 Ordered SCD [Sequential Compression Device] [OM.PC] Routine Oth 09/24/17 21:47 Ordered Resuscitation Status Routine Resus Stat 09/24/17 21:45 Ordered Medication Orders Sodium Chloride (Normal Saline) 1,000 mls @ 999 mls/hr IV ASDIRECTED [facility] Last Admin: 09/24/17 20:06 Dose: 999 mls/hr Sodium Chloride (Normal Saline) 1,000 mls @ 999 mls/hr IV ASDIRECTED [facility] Last Admin: 09/24/17 21:29 Dose: 999 mls/hr Lactated Ringer's (Ringers, Lactated) 1,000 mls @ 125 mls/hr IV ASDIRECTED [facility] Last Admin: 09/25/17 07:15 Dose: 125 mls/hr Cefoxitin Sodium 2 gm/ Sodium (Chloride) 50 mls @ 100 mls/hr IV Q6H [facility] Last Admin: 09/25/17 10:42 Dose: 100 mls/hr Insulin Aspart (Novolog) 0 unit SUBCUT TIDMEALS [facility] PRN Reason: Protocol Last Admin: 09/25/17 08:06 Dose: 2 units Levothyroxine Sodium (Levothyroxine) 175 mcg PO DAILY@0600 [facility] Last Admin: 09/25/17 07:31 Dose: 175 mcg Morphine Sulfate (Morphine) 4 mg IVPUSH Q2H PRN PRN Reason: Pain (severe 7-10) Ondansetron HCl (Zofran) 4 mg IVPUSH Q6H PRN PRN Reason: Nausea/Vomiting - Assessment Assessment (Free Text/Narrative):: anticipate discharge later this pm - Plan Plan (Free Text/Narrative):: see d/c plan
[2017-09-25] MEDS ORDERED: Acetaminophen/HYDROcodone 325-5 MG Tab PO PRN (11:40)
[2017-09-25 14:44] VITALS: BP 119/61
== END 2017-09-25 17:30 | disposition home or self-care (01) ==
LOC: FB.ED 18:23 → FB.SDS 22:09 → FB.MS 22:09 → FB.SDS 09-25 17:30
PROVIDERS: ATTEND Surgery
DX: K35.80 Unspecified acute appendicitis (principal); E03.9 Hypothyroidism, unspecified; E11.9 Type 2 diabetes mellitus without complications; Z79.82 Long term (current) use of aspirin; Z79.899 Other long term (current) drug therapy; Z98.890 Other specified postprocedural states; Z87.891 Personal history of nicotine dependence
CPT/HCPCS: 36415; 44970; 74177; 80053; 81001; 82150; 82962; 85025; 86140; 88304; 96361; 96365; 96375; 96376; 99285; A9270; J0330; J0694; J1100; J1885; J2250; J2270; J2405; J2704; J2710; J3010; J7040; J7050; J7120; Q9967